=== PATIENT | female | born 1980 | race Caucasian/White ===

== ENCOUNTER → 2019-01-18 13:28 | Outpatient (CLI) | payer OTHER, SELFPAY ==
--- NOTE | 2019-01-18 | DI.MRI.S_ITS ---
PROCEDURE: MR HAND LT WO/W CON INDICATIONS: osteoarthritis TECHNIQUE: Coronal and axial T1 spin echo and T2 fast spin echo with fat saturation. Post-contrast coronal and axial T1 spin echo with fat saturation images through the right hand and wrist. COMPARISON: Outside Film, CR, XR HAND 3+ VIEWS BILATERAL, 08/13/2018, 15:41. FINDINGS: Image quality: Excellent. Bones and cartilage: Marrow signal change present within the second metacarpal head demonstrating T1 hypointensity and T2 hyperintense appearance. There is minimal associated enhancement. Adjacent synovial thickening and signal changes are present at the second MCP joint. Similar marrow and adjacent signal changes seen at the third MCP joint although to a lesser extent. Soft tissues: No tenosynovitis identified. Pathologic joint effusion seen. IMPRESSION: Marginal marrow signal changes at the second MCP joint, suggestive of erosion although this could be subacute or chronic in age. Adjacent synovial thickening, with minimal enhancement raising possibility of low-grade synovitis. Of note, the appearance could alternatively reflect posttraumatic sprain of the radial collateral ligament. Therefore recommend clinical and laboratory correlation. Similar marrow signal changes present at the third MCP joint although to a much lesser extent. Consider repeat radiographs as these findings appear to be much less conspicuous on the prior radiographic study from 08/13/18. Dictated by: Estevan Shelton M.D. on 01/18/2019 at 15:12 Approved by: Estevan Shelton M.D. on 01/18/2019 at 15:23
--- NOTE | 2019-01-18 | DI.MRI.S_ITS ---
PROCEDURE: MR HAND RT WO/W CON INDICATIONS: osteoarthritis TECHNIQUE: Coronal and axial T1 spin echo and T2 fast spin echo with fat saturation. Post-contrast coronal and axial T1 spin echo with fat saturation images through the right hand and wrist. COMPARISON: Outside Film, CR, XR HAND 3+ VIEWS BILATERAL, 08/13/2018, 15:41. FINDINGS: Image quality: Excellent. Bones and cartilage: Marrow signal changes to suggest erosions. First CMC and triscaphe joint degeneration Synovium: No evidence of active synovitis or synovial thickening Soft tissues: No tenosynovitis. No pathologic joint effusions identified. IMPRESSION: No marrow signal changes to suggest erosions. Dictated by: Estevan Shelton M.D. on 01/18/2019 at 15:23 Approved by: Estevan Shelton M.D. on 01/18/2019 at 15:26
== END ==
PROVIDERS: Visit Provider Internal Medicine Rheumatology
DX: R93.89 Abnormal findings on diagnostic imaging of other specified body structures (principal); M19.041 Primary osteoarthritis, right hand; M19.042 Primary osteoarthritis, left hand
CPT/HCPCS: 73220; A9579

== ENCOUNTER → 2020-06-20 16:37 | Outpatient (CLI) | payer OTHER, SELFPAY ==
[2020-06-20 17:45] LABS: Pregnancy Test Urine Negative (Negative)
[2020-06-20 17:50] LABS: Lithium < 0.2 mmol/L (0.6-1.2)
[2020-06-20 17:55] LABS: Alanine Aminotransferase 40 IU/L (<35); Albumin 4.4 g/dL (3.5-5.0); Albumin Globulin Ratio 1.7 (1.0-2.8); Alkaline Phosphatase 43 U/L (38-126); Aspartate Aminotransferase 40 IU/L (14-36); BUN Creatinine Ratio 17.5 (6-22); Bilirubin Total 0.4 mg/dL (0.2-1.3); Blood Urea Nitrogen 11 mg/dL (7-17); Carbon Dioxide 32 mmol/L (22-32); Chloride 101 mmol/L (98-107); Estimated Glomerular Filt Rate > 60.0 mL/min (>60); Globulin 2.6 g/dL (1.7-4.1); Glucose 94 mg/dL (70-100); HEMOLYSIS < 15 (0-50); Potassium 3.7 mmol/L (3.4-5.1); Sodium 137 mmol/L (137-145)
[2020-06-20 18:10] LABS: Free T4, Direct Thyroxine 1.05 ng/dL (0.78-2.19)
[2020-06-20 18:24] LABS: Thyroid Stimulating Hormone 0.643 uIU/mL (0.47-4.68)
[2020-06-22 13:36] LABS: Lamotrigine Lamictal 6.8 ug/mL (2.0-20.0)
== END ==
PROVIDERS: Referring Provider Psychiatry & Neurology Psychiatry; Visit Provider Psychiatry & Neurology Psychiatry
DX: F31.81 Bipolar II disorder (principal)
CPT/HCPCS: 36415; 80053; 80175; 80178; 81025; 84439; 84443; 90833; 99214

== ENCOUNTER → 2020-07-04 07:55 | Outpatient (CLI) | payer OTHER, SELFPAY ==
[2020-07-04 09:29] LABS: Lithium 0.6 mmol/L (0.6-1.2)
== END ==
PROVIDERS: Referring Provider Psychiatry & Neurology Psychiatry; Visit Provider Psychiatry & Neurology Psychiatry
DX: F31.81 Bipolar II disorder (principal)
CPT/HCPCS: 36415; 80178; 90833; 99214

== ENCOUNTER → 2020-08-03 09:07 | Outpatient (CLI) | payer OTHER, SELFPAY ==
[2020-08-03 09:57] LABS: Alanine Aminotransferase 26 IU/L (<35); Albumin 4.9 g/dL (3.5-5.0); Albumin Globulin Ratio 1.8 (1.0-2.8); Alkaline Phosphatase 41 U/L (38-126); Aspartate Aminotransferase 32 IU/L (14-36); BUN Creatinine Ratio 13.4 (6-22); Bilirubin Total 0.5 mg/dL (0.2-1.3); Blood Urea Nitrogen 9 mg/dL (7-17); Calcium 9.6 mg/dL (8.4-10.2); Carbon Dioxide 28 mmol/L (22-32); Chloride 101 mmol/L (98-107); Estimated Glomerular Filt Rate > 60.0 mL/min (>60); Globulin 2.8 g/dL (1.7-4.1); Glucose 62 mg/dL (70-100); HEMOLYSIS < 15 (0-50); Potassium 3.6 mmol/L (3.4-5.1); Sodium 137 mmol/L (137-145); Total Protein 7.7 g/dL (6.3-8.2)
[2020-08-03 10:16] LABS: Lithium 0.7 mmol/L (0.6-1.2)
[2020-08-06 13:40] LABS: Lamotrigine Lamictal 5.9 ug/mL (2.0-20.0)
== END ==
PROVIDERS: Referring Provider Psychiatry & Neurology Psychiatry; Visit Provider Psychiatry & Neurology Psychiatry
DX: F31.81 Bipolar II disorder (principal)
CPT/HCPCS: 36415; 80053; 80175; 80178

== ENCOUNTER → 2020-10-17 13:31 | Outpatient (CLI) | payer OTHER, SELFPAY ==
[2020-10-17 15:48] LABS: Lithium 0.3 mmol/L (0.6-1.2)
[2020-10-19 12:14] LABS: Lamotrigine Lamictal 5.2 ug/mL (2.0-20.0)
== END ==
PROVIDERS: Referring Provider Psychiatry & Neurology Psychiatry; Visit Provider Psychiatry & Neurology Psychiatry
DX: F31.81 Bipolar II disorder (principal)
CPT/HCPCS: 36415; 80175; 80178

== ENCOUNTER → 2021-03-18 08:30 | Outpatient (CLI) | payer OTHER, SELFPAY ==
[2021-03-18 09:32] LABS: Lithium 0.7 mmol/L (0.6-1.2)
[2021-03-20 14:16] LABS: Lamotrigine Lamictal 3.2 ug/mL (2.0-20.0)
== END ==
PROVIDERS: Referring Provider Psychiatry & Neurology Psychiatry; Visit Provider Psychiatry & Neurology Psychiatry
DX: F31.81 Bipolar II disorder (principal)
CPT/HCPCS: 36415; 80175; 80178

== ENCOUNTER → 2021-11-25 08:55 | Outpatient (CLI) | payer OTHER, SELFPAY ==
[2021-11-25 10:23] LABS: Lithium 0.9 mmol/L (0.6-1.2)
== END ==
PROVIDERS: Referring Provider Psychiatry & Neurology Psychiatry; Visit Provider Psychiatry & Neurology Psychiatry
DX: F31.81 Bipolar II disorder (principal); Z79.899 Other long term (current) drug therapy
CPT/HCPCS: 36415; 80178